=== PATIENT | female | born 1995 | race Caucasian/White ===

== ENCOUNTER → 2017-06-26 | Outpatient (CLI) | payer BC ==
[~2017-06-26] MED LIST: DOCU-416 PO; HYDR-4309 PO; IOPAMIDOL 76% 75 ML INFUS BTL 75 ML ONE
--- NOTE | 2017-06-26 10:48 | RADIOLOGY IMAGING REPORT ---
FACILITY: [facility] [place] PATIENT NAME: Joaquin Guzman : 1995 MR: [id number] V: [id number] EXAM DATE: ORDERING PHYSICIAN: NELSON SNYDER TECHNOLOGIST: Location: [facility] Patient: Joaquin Guzman : 1995 Visit/Account:[id number] Date of Sevice: 06/26/2017 US SINGLE ORGAN, right lower quadrant ultrasound HISTORY: Severe right lower quadrant pain last night COMPARISON: None. FINDINGS: : There is a hypoechoic tubular structure in the right lower quadrant measuring approximately 4 x 6 x 5.3 mm which may represent the appendix. This did appear compressible however the patient did have pain in this location. Appendicitis cannot be entirely ruled out. Vascular flow was demonstrated in the right common iliac artery and vein. No abnormal fluid collections demonstrated IMPRESSION: Is a tubular hypoechoic structure in the right lower quadrant measuring 4 x 6 x 5.3 mm which did appe ar compressible although the patient did experience pain in this location. This could represent an a ppendix and acute appendicitis cannot be entirely excluded. CT of abdomen pelvis recommended for fur ther evaluation depending upon the clinical presentation Report Dictated By: Sindy Nelson MD at 06/26/2017 10:42 AM Report E-Signed By: Sindy Nelson MD at 06/26/2017 10:44 AM WSN:[email or web address]
--- NOTE | 2017-06-26 10:57 | RADIOLOGY IMAGING REPORT ---
FACILITY: [facility] [place] PATIENT NAME: Joaquin Guzman : 1995 MR: [id number] V: [id number] EXAM DATE: ORDERING PHYSICIAN: NELSON SNYDER TECHNOLOGIST: Location: [facility] Patient: Joaquin Guzman : 1995 Visit/Account:[id number] Date of Sevice: 06/26/2017 GALLBLADDER HISTORY: Right upper quadrant pain COMPARISON: None. FINDINGS: Gallbladder: Unremarkable; no stones or sludge. Liver: Negative. Common duct: Normal, 3.1 mm diameter. Pancreas: Partially obscured by bowel, visualized aspects unremarkable. Right kidney: Right kidney appears unremarkable measuring 10 cm in length with no evidence of hydrone phrosis Upper abdominal aorta and IVC: Patent. Ascites: None visualized. IMPRESSION: Unremarkable right upper quadrant ultrasound Report Dictated By: Sindy Nelson MD at 06/26/2017 10:50 AM Report E-Signed By: Sindy Nelson MD at 06/26/2017 10:52 AM WSN:[email or web address]
--- NOTE | 2017-06-26 13:57 | RADIOLOGY IMAGING REPORT ---
FACILITY: [facility] [place] PATIENT NAME: Joaquin Guzman : 1995 MR: [id number] V: [id number] EXAM DATE: ORDERING PHYSICIAN: NELSON SNYDER TECHNOLOGIST: Location: [facility] Patient: Joaquin Guzman : 1995 Visit/Account:[id number] Date of Sevice: 06/26/2017 ABDOMEN/PELVIS WITH CONTRAST HISTORY: Right lower quadrant pain TECHNIQUE: Following administration of IV contrast contiguous axial images acquired through the abdom en/pelvis. Coronal and sagittal reformatting also performed. Dose Lowering Technique One of the following dose optimization techniques was utilized in the performance of this exam: Autom ated exposure control; adjustment of the mA and/or kV according to the patient's size; or use of an i terative reconstruction technique. Specific details can be referenced in the facility's radiology C T exam operational policy. CONTRAST: 75 mL Isovue-370 COMPARISON: Right lower quadrant ultrasound performed today FINDINGS: Visualized lung bases: Negative. Hepatobiliary: Negative. Spleen: Negative. Adrenals: Negative. Pancreas: Negative. Kidneys ureters or bladder: Negative. Genitalia: The uterus is dextroverted GI: The appendix is mildly thickened measuring 8 mm in thickness and contains multiple appendicolith s. There is a trace amount of free pelvic fluid although pelvic abscess is not demonstrated Vessels/spaces/nodes: Trace amount of free pelvic fluid there several mildly prominent mesenteric ly mph nodes in the right lower quadrant. Scoop Operator lymph node measures 1.5 x 0.8 x 0.9 cm there a re multiple shotty retroperitoneal lymph nodes Bones/soft tissues: There is a small umbilical hernia containing fat Additional findings: None pertinent. IMPRESSION: The appendix is mildly thickened measuring 8 mm in thickness and contains multiple appendicoliths. T here is a trace amount of free pelvic fluid although no evidence of a pelvic abscess. Findings are c oncerning for appendicitis Results were called to NELSON SNYDER at 06/26/2017 1:54 PM. Report Dictated By: Sindy Nelson MD at 06/26/2017 1:40 PM Report E-Signed By: Sindy Nelson MD at 06/26/2017 1:54 PM WSN:[email or web address]
== END ==
LOC: US 08:36
PROVIDERS: ATTEND Family Medicine
DX: K38.0 Hyperplasia of appendix (principal); R59.0 Localized enlarged lymph nodes; K42.9 Umbilical hernia without obstruction or gangrene; R19.8 Other specified symptoms and signs involving the digestive system and abdomen
CPT/HCPCS: 74177; 76705; 81025; Q9967

== ENCOUNTER 2017-06-27 10:00 | Day surgery (SDC) | payer BC ==
[~2017-06-27] VITALS: Ht 167.6 cm; Wt 67.1 kg
[2017-06-27] MEDS ORDERED: FAMOTIDINE 20 MG/50 ML PREMIX IVPB ONE (10:15)
[2017-06-27] MEDS ORDERED: MIDAZOLAM 2 MG/2 ML VIAL IVP PRN (10:15)
[2017-06-27] MEDS ORDERED: NORMOSOL R SOLN(*) 1000 ML BAG 1,000 ML IV PRN (10:15)
[2017-06-27] MEDS ORDERED: LIDOCAINE/SOD BICARB 8.4% SYR ID ONE (10:15)
[2017-06-27] MEDS ORDERED: ROPIVACAINE 0.5% 20 ML VIAL ONE (10:28)
[2017-06-27] MEDS ORDERED: BUPIVACAIN 0.25% INJ 50ML VIAL ONE (10:28)
[2017-06-27] MEDS ORDERED: BUPIV/EPI 0.25% 1:200,000 50ML INFIL ONE (10:29)
[2017-06-27] MEDS ORDERED: ROPIVACAINE 0.2% 20 ML VIAL ONE (10:29)
[2017-06-27] MEDS ORDERED: LEVOFLOXACIN/D5W*500 MG/100 ML 100 ML IVPB ONE (10:30)
[2017-06-27] MEDS ORDERED: metroNIDAZOLE* 500MG/100ML BAG 100 ML IVPB ONE (10:30)
[2017-06-27 10:45] VITALS: BP 125/83
--- NOTE | 2017-06-27 10:50 | General Surgery Consultation ---
History of Present Illness Chief Complaint chronic abdominal pain with acute exacerbation in the right lower quadrant History of Present Illness 21 year old female with a h/o chronic abdominal pain who presented to the [facility] ED last night with acute exacerbation of pain in the right lower quadrant. She had a CT scan that revealed an 8mm appendix with multiple appendicoliths suggesting acute appendicitis. She decided to not have surgery yesterday but then called back today having more pain and is now wanting to have her appendix removed. She is healthy and thin. She has no prior abd surgery. Her test is negative. She is taking a PPI and another medicine for IBS. She denies fevers. She complains of diarrhea and constipation. She does not think that her pain is related to eating as an exacerbating or alleviating factor. She works in the [employer] department at the [employer]. History Home Meds Active Scripts Docusate Sodium (COLACE) 100 Mg Capsule, 100 MG PO BID Y for CONSTIPATION for 10 Days, #20 CAPSULE 0 Refills Prov:RASHMI STEPHENS MD 06/27/17 Reported Medications Hydrocodone Bit/Acetaminophen (NORCO 5-325 TABLET) 1 Each Tablet, 1 TAB PO Q6H for pain, #25 TAB 0 Refills 06/27/17 Allergies: Coded Allergies: Penicillins (Verified Allergy, Mild, 06/27/17) Review of Systems Constitutional: No Fever, No Weight Loss, No Weight Gain, No Chills, No Night Sweats, No Other Neurological: No Syncope, No Confusion, No Weakness, No Dizziness, No Slurred Speech, No Other Eyes: No Vision Change, No Loss of Vision, No Photophobia, No Other ENT: No Hearing Loss, No Sinus Congestion, No Sore Throat, No Ear Ache, No Tinnitus, No Other Cardiovascular: No Chest Pain, No Palpitations, No Orthostatic Hypotension, No Other Respiratory: No Shortness of Breath, No Cough, No Wheezing, No Other Gastrointestinal: No Nausea, No Vomiting, No Diarrhea, No Dysphagia, No Constipation, No Early Satiety, No Hematemesis, No Hematochezia, No Melena, Abdominal Pain, No Other Genitourinary: No Dysuria, No Hematuria, No Urinary Incontinence, No Other Musculoskeletal: No Pain, No Sprain, No Strain, No Impaired Mobility, No Other Psychiatric: No Depression, No Anxiety, No Other Exam Vital Signs Vital Signs Date Time Temp Pulse Resp B/P (MAP) Pulse Ox O2 Delivery O2 Flow Rate FiO2 06/27/17 12:45 78 14 99 06/27/17 12:45 97.5 121/62 (81) Room Air General Appearance: Alert, Awake, No Acute Distress, Afebrile Eyes: PERRLA ENT: Moist Mucous Membranes Cardiovascular: Regular Rate and Rhythm Respiratory: No Respiratory Distress GI: Other (mild tenderness in RLQ. no peritoneal signs) : Normal Lymph: No Adenopathy, Other Extremities: Warm, Perfused Integumentary: Skin Intact without Lesion / Mass Psych: Alert & Oriented X3, Appropriate Mood & Affect Medical Decision Making Data Points Result Diagram: 06/27/17 1007 Pre-Admit Course Medical Record Review: Yes Assessment and Plan Time Spent: < 30 min Consult a/p plan for laparoscopic appendectomy, possible open discussed rational and risks of the procedure. consent signed. Copies to: CHELSIE JOHN MD Venous Thromboembolism VTE Risk Physician Assess for VTE Risk: Yes Patient's VTE Risk: Low VTE Diagnostic Test 2 Days Prior to Admit: No Antithrombotics Is Pt On Any Antithrombotics?: No RASHMI STEPHENS MD Jun 27, 2017 10:50
[2017-06-27] MEDS ORDERED: DEXAMETHASONE SOD PHOS 10MG/ML ONE (10:57)
[2017-06-27] MEDS ORDERED: SUCCINYLCHOL CHL 200MG/10ML VL ONE (10:57)
[2017-06-27] MEDS ORDERED: LIDOCAINE MPF 1% 5 ML VIAL ONE (10:57)
[2017-06-27] MEDS ORDERED: ROCURONIUM BROM 10 MG/ML 10 ML ONE (10:57)
[2017-06-27] MEDS ORDERED: ONDANSETRON 4 MG/2 ML VIAL ONE (10:57)
[2017-06-27] MEDS ORDERED: PROPOFOL EMUL(*) 10MG/ML 20 ML 40 ML ONE (10:57)
[2017-06-27] MEDS ORDERED: SUGAMMADEX SOD 200 MG/2 ML SDV ONE (10:57)
[2017-06-27] MEDS ORDERED: KETOROLAC 30 MG/ML VIAL ONE (11:00)
[2017-06-27] MEDS ORDERED: fentaNYL CITR 100 MCG/2 ML AMP ONE (11:22)
[2017-06-27] MEDS ORDERED: HYDR-4309 PO (12:30)
[2017-06-27] MEDS ORDERED: DOCU-416 PO (12:39)
--- NOTE | 2017-06-27 12:44 | Short(Outpt) Discharge Summary ---
Discharge Summary Reason for Hosp/Final Diag: (1) Right lower quadrant abdominal pain Status: Acute Hospital Course & Plan: Ms. Guzman is s/p lap appy. The procedure was uncomplicated. She had some adhesions to the base of her appendix. The appendix did not look inflamed. She is being discharged from PACU. Departure Discharge to: Home, Self Care Discharge Instructions Home Meds Active Scripts Docusate Sodium (COLACE) 100 Mg Capsule, 100 MG PO BID Y for CONSTIPATION for 10 Days, #20 CAPSULE 0 Refills Prov:RASHMI STEPHENS MD 06/27/17 Reported Medications Hydrocodone Bit/Acetaminophen (NORCO 5-325 TABLET) 1 Each Tablet, 1 TAB PO Q6H for pain, #25 TAB 0 Refills 06/27/17 Follow up Referrals: General Surgery - 07/11/17 @ Surgery, General with Alessandro Shin Md You have a f/u appt with Dr. Shin on Friday07/11/17 at 9:00am Diet: Regular Activity: As Tolerated, No Heavy Lifting Special Instructions: Remove outer dressing in 48 hrs. Inner steri strips will stay for 1-2 weeks, you can remove after this time Ok to shower and get dressings/incisions wet, pat dry No lifting >10lbs for four weeks. RASHMI STEPHENS MD Jun 27, 2017 12:44
[2017-06-27 12:45] VITALS: BP 121/62
--- NOTE | 2017-06-27 12:46 | Post Operative Progress Note ---
Post Operative Progress Note Date: Jun 27, 2017 Surgeon: Dr. Stephens Anesthesia: Dr. Hinds Pre-Op Diagnosis: right lower quadrant abdominal pain Post-Op Diagnosis: same Findings: non-inflamed appendix with adhesions to base Procedure(s): laparoscopic appendectomy Specimen Removed:(May be N/A): appendix Complications: none Fluids: see anesthesia records Estimated Blood Loss: minimal RASHMI STEPHENS MD Jun 27, 2017 12:46
[2017-06-27 13:00] VITALS: BP 118/79
[2017-06-27 13:23] VITALS: BP 125/81
[2017-06-27 13:25] VITALS: BP 116/88
--- NOTE | 2017-06-29 08:48 | Post Operative Note ---
Operative Note - ENT Operative Day Date: Jun 27, 2017 Physicians Surgeon: Dr. Rashmi Stephens Iron Setter: none Anesthesia: Dr. Hinds Diagnosis Pre-Op Diagnosis: chronic abdominal pain, possible acute appendicitis Post-Op Diagnosis: normal appendix Procedure Findings: some flimsy adhesions to the base of the appendix no signs of inflamation to the appendix gallbladder, stomach, uterus and adenexa appeared normal Procedure(s): laparoscopic appendectomy The patient was placed in the supine position with the left arm tucked. General anesthesia was induced without untoward event and she was endotracheally intubated. The abdomen was prepped an sterilely draped and the timeout was performed. A 10mm infraumbilical incision was made and blunt dissection down to the fascia. The fascia was sharpley entered. Two 0 Vicryl stay sutures were placed. The Javed port was placed and the abdomen was insufflated. A 5mm supraumbilical and 5mm left lower quadrant port was placed. Some adhesions to the base of the appendix were divided with the Harmonic scalpal. A window was made under base of appnendix and it was divided with a 45mm Eschalon blue load stapler. The mesoappendix was taken with the Harmonic. There was no bleeding. I did not irrigate. The 5mm ports were removed under direct vision. The abdomen was desufflated. The Javed was removed and the defect was closed with 0 Vicryle figure of eight. The skin was closed with 4-0 monocryl on all 3 incisions. The incisions were sterilely dressed. The patient was awaken from anesthesia and transported to PACU. She will be discharged home. Specimen Removed:(Maybe N/A): appendix Complications: none Fluids Fluids: see anesthesia report Estimated Blood Loss: minimal RASHMI STEPHENS MD Jun 29, 2017 08:48
== END 2017-06-27 12:45 | disposition home or self-care (01) ==
LOC: OR 10:00 → EDSTATUS 10:01 → OR 12:45
PROVIDERS: ATTEND Surgery
DX: K38.8 Other specified diseases of appendix (principal)
CPT/HCPCS: 36415; 44970; 84703; 88304; J0330; J1100; J1885; J1956; J2001; J2250; J2405; J2704; J3010; J3490; 82040; 82247; 82310; 82374; 82435; 82565; 82947; 84075; 84132; 84155; 84295; 84450; 84460; 84520; J2795

== ENCOUNTER 2018-11-29 00:03 | Emergency (ER) | payer OTHER ==
[~2018-11-29 00:03] MED LIST changes: +BENZ200C15 PO; +Birth Control PO; +GUAI120L3 PO; -HYDR-4309 PO; +HYDR-653 PO; -IOPAMIDOL 76% 75 ML INFUS BTL 75 ML ONE; +MULT1CAP59 PO; +NORE1TAB PO
--- NOTE | 2018-11-29 00:10 | ER Report ---
History and Physical Time Seen By MD: 00:05 HPI/ROS CHIEF COMPLAINT: Forehead laceration HISTORY OF PRESENT ILLNESS: 23-year-old female presents ambulatory to the ER with a laceration to her forehead. Patient was laying in a hammock when one of the poles gave out, falling and striking her in the head. She has a 3 cm forehead laceration diagonally above the left eye. One edge of the laceration is severely bruised. Patient takes her tetanus status is not up-to-date REVIEW OF SYSTEMS: Respiratory: No cough, no dyspnea. Cardiovascular: No chest pain, no palpitations. Gastrointestinal: No vomiting, no abdominal pain. Musculoskeletal: No back pain. Allergies: Coded Allergies: Penicillins (Verified Allergy, Mild, 11/29/18) Home Meds Active Scripts Norethindrone-Ethinyl Estrad (DASETTA) 1 Each Tablet, 1 EACH PO DAILY, #3 PACK 5 Refills Take one pill daily, skipping placebo pills for 3 packs. Prov:LUIS ARMANDO MARRERO 04/30/18 Reported Medications Multivitamin (MULTIVITAMINS) 1 Each Capsule, 1 EACH PO, CAPSULE 04/30/18 Past Medical/Surgical History Past medical history unremarkable. Past surgical history appendectomy Reviewed Nurses Notes: Yes Old Medical Records Reviewed: Yes Smoking Status: Never Smoker Constitutional Vital Sign - Last 24 Hours 11/29/18 00:17 Temp 98.2 Pulse 92 Resp 16 B/P (MAP) 140/95 Pulse Ox 97 O2 Delivery Room Air Physical Exam General Appearance: The patient is alert, has no immediate need for airway protection and no current signs of toxicity. Vital signs stable, afebrile, pulse ox normal, palpation of the head and neck reveal no tenderness or trauma except a laceration on the left forehead diagonally toward the left. I, there is also an abrasion to her upper lip HEENT: Pupils equal and round no injection. TMs normal, TMJs nontender, bite normal, no oral trauma, facial bones intact on palpation Respiratory: Chest is non tender, lungs are clear to auscultation. No chest wall tenderness Cardiac: regular rate and rhythm Gastrointestinal: Abdomen is soft and non tender, no masses, bowel sounds normal. Musculoskeletal: Neck: Neck is supple and non tender. No tenderness with agg ressive palpation in the midline Extremities have full range of motion and are non tender. Skin: No rashes or lesions. DIFFERENTIAL DIAGNOSIS: After history and physical exam differential diagnosis was considered for head injury including but not limited to concussion, skull fracture, intraparenchymal contusion, subarachnoid, subdural and epidural hematoma. Forehead laceration Medical Decision Making ED Course/Re-evaluation ED Course Patient was minute to an examination room. H&P was done. The differential diagnoses was considered. Patient with head injury. A pole fell on her head. She has an aspiration to her left fore head and abrasion to her upper lip. Patient's given a tetanus booster to bring her up-to-date. As recent repaired as noted below area. Wound care was discussed, suture removal will be in 5 days. Procedure: Laceration repair. Verbal consent was obtained from the patient. The 2.9 cm laceration on the left fore head was anesthetized in the usual fashion. The wound appeared quite traumatized with bruising along the superior edge of the laceration. It is angled through the dermis at a 45 angle The wound was scrubbed, draped and explored to its base with a gloved finger. There were no deep structures involved. No foreign body was palpated The wound was repaired with 6-0 Prolene times for suture. The wound repair was simple. The procedure was performed by myself. Decision to Disposition Date: Nov 29, 2018 Decision to Disposition Time: 00:23 Depart Departure Latest Vital Signs Vital Signs Date Time Temp Pulse Resp B/P (MAP) Pulse Ox O2 Delivery O2 Flow Rate FiO2 11/29/18 00:17 98.2 92 16 140/95 97 Room Air Impression: Primary Impression: Forehead laceration Additional Impression: Lip abrasion Condition: Improved Disposition: HOME OR SELF-CARE Patient Instructions: Facial Laceration (ED) Additional Instructions: Perform daily wound care, gently cleanse the wound with Q-tips peroxide and water mixed 50-50 then cover with a layer of antibiotic ointment Have your stitches removed in 5 days Problem Qualifiers Primary Impression: Forehead laceration Encounter type: initial encounter Qualified Codes: S01.81XA - Laceration without foreign body of other part of head, initial encounter Additional Impression: Lip abrasion Encounter type: initial encounter Qualified Codes: S00.511A - Abrasion of lip, initial encounter DELIA SHEARER DO Nov 29, 2018 00:10
[2018-11-29 00:17] VITALS: BP 140/95
[2018-11-29] MEDS ORDERED: DIPHTH/TETANUS/ACEL. PERTUSSIS IM ONLY ONE (00:30)
== END 2018-11-29 01:31 | disposition home or self-care (01) ==
LOC: ER 00:21
DX: S01.81XA Laceration without foreign body of other part of head, initial encounter (principal); S00.511A Abrasion of lip, initial encounter
CPT/HCPCS: 90471; 90715; 99283